=== PATIENT | male | born 1935 | race Caucasian/White ===

== ENCOUNTER → 2021-09-25 | Day surgery (SDC) | payer MEDICARE ==
[~2021-09-25] VITALS: Ht 177.8 cm; Wt 86.2 kg
[~2021-09-25] MED LIST: ASPIRIN EC81 MG PO; FINASTERIDE5 MG PO; METOPROLOL SUCC25 MG PO; NORVASC5 MG PO; TERAZOSIN 1MG (G1 MG PO; VALSARTAN-HCTZ1 EAC3 PO
[2021-09-25 08:53] LABS: HGB 14.7 g/dl (13.2-18.0); MCH 31.1 pg (25.0-31.0); MCHC 33.4 g/dL (32.0-36.0); MCV 93.2 fL (78.0-100.0); MPV 10.5 fL (6.0-9.5); RBC 4.72 M/uL (4.70-6.00); WBC 9.5 K/uL (4.0-10.5)
[2021-09-25 09:22] LABS: ALBUMIN 3.9 g/dL (3.4-5.0); BILIRUBIN - TOTAL 0.7 mg/dL (0.2-1.0); BUN/CREAT RATIO (CALC) 12.4 RATIO; CREATININE 0.89 mg/dL (0.67-1.17); POTASSIUM 3.3 mmol/L (3.5-5.1); TOTAL PROTEIN 7.9 g/dL (6.4-8.2)
== END | disposition home or self-care (01) ==
LOC: FAS 08:23
PROVIDERS: Surgery
DX: Z12.11 Encounter for screening for malignant neoplasm of colon (principal); I10 Essential (primary) hypertension; N40.0 Benign prostatic hyperplasia without lower urinary tract symptoms; Z86.010 Personal history of colon polyps; Z95.0 Presence of cardiac pacemaker; Z87.891 Personal history of nicotine dependence; Z79.82 Long term (current) use of aspirin
CPT/HCPCS: 36415; 80053; J2704; J7120